=== PATIENT | female | born 1965 ===

== ENCOUNTER 2021-07-31 14:51 | Outpatient (CLI) | payer BC | END 2021-07-31 14:52 | disposition home or self-care (01) | LOC: CSHMRI 14:51 | PROVIDERS: ATTEND Orthopaedic Surgery | DX: M48.062 Spinal stenosis, lumbar region with neurogenic claudication (principal); M47.816 Spondylosis without myelopathy or radiculopathy, lumbar region; M43.16 Spondylolisthesis, lumbar region | CPT/HCPCS: 72148 ==